=== PATIENT | female | born 1970 | race Caucasian/White ===

== ENCOUNTER 2020-03-22 22:55 | Emergency (ER) | payer OTHER ==
[~2020-03-22] VITALS: Ht 160 cm; Wt 79.5 kg
--- NOTE | 2020-03-22 23:11 | PHYS DOC ---
General Adult EDM: Chief Complaint: HAND PROBLEM HPI: HPI: Patient is a 49-year-old female coming in for bilateral forearm pain and right hand pain. Just prior to arrival she was sitting in a stool fell backwards and caught herself on the floor with her hands. No other injuries. She is right- handed. States her hand feels like it is "asleep" Review of Systems: Review of Systems: Constitutional: Denies fever or chills Eyes: Denies change in visual acuity HENT: Denies nasal congestion or sore throat Respiratory: Denies cough or shortness of breath Cardiovascular: Denies chest pain or edema GI: Denies abdominal pain, nausea, vomiting, bloody stools or diarrhea : Denies dysuria Musculoskeletal: Bilateral forearm pain and right hand pain Integument: Denies rash Neurologic: Denies headache, focal weakness or sensory changes Endocrine: Denies polyuria or polydipsia Lymphatic: Denies swollen glands Psychiatric: Denies depression or anxiety Physical Exam: PE: Constitutional: Well developed, well nourished, no acute distress, non-toxic appearance. [] HENT: Normocephalic, atraumatic, bilateral external ears normal, oropharynx moist, no oral exudates, nose normal. [] Eyes: PERRLA, EOMI, conjunctiva normal, no discharge. [] Neck: Normal range of motion, no tenderness, supple, no stridor. [] Cardiovascular:Heart rate regular rhythm, no murmur [] Lungs & Thorax: Bilateral breath sounds clear to auscultation [] Abdomen: Bowel sounds normal, soft, no tenderness, no masses, no pulsatile masses. [] Skin: Warm, dry, no erythema, no rash. [] Back: No tenderness, no CVA tenderness. [] Extremities: No tenderness, no cyanosis, no clubbing, ROM intact, no edema. [] Bilateral forearm tenderness, left forearm pain worse with pronation, no deformities, right arm is distal protrusion, slight swelling of hand, neurovascular distal to injury. Neurologic: Alert and oriented X 3, normal motor function, normal sensory function, no focal deficits noted. [] Psychologic: Affect normal, judgement normal, mood normal. [] EKG: EKG: [] Radiology/Procedures: Radiology/Procedures: [] Heart Score: Risk Factors: Risk Factors: DM, Current or recent (<one month) smoker, HTN, HLP, family history of CAD, obesity. Risk Scores: Score 0 - 3: 2.5% MACE over next 6 weeks - Discharge Home Score 4 - 6: 20.3% MACE over next 6 weeks - Admit for Clinical Observation Score 7 - 10: 72.7% MACE over next 6 weeks - Early Invasive Strategies Course & Med Decision Making: Course & Med Decision Making EP interpretation of films, and then left for remarkable, impacted nondisplaced distal radius fracture on right [] Dragon Disclaimer: Billie Disclaimer: This electronic medical record was generated, in whole or in part, using a voice recognition dictation system. Departure Departure: Impression: Primary Impression: Fracture of right distal radius Disposition: 01 DC HOME SELF CARE/HOMELESS Condition: STABLE Referrals: PCP,UNKNOWN (PCP) [facility] Patient Instructions: Wrist Fracture ELVER CASTLE MD Mar 22, 2020 23:11
[2020-03-22 23:12] VITALS: BP 150/91
[2020-03-22] MEDS ORDERED: HYDROcodone/APAP 5/325MG 1 TAB TABLET PO ONE (23:15)
[2020-03-22] MEDS ORDERED: ACETAMINOPHEN 500 MG TABLET PO ONE ×2 (23:29→23:30)
--- NOTE | 2020-03-23 00:31 | RAD ---
HAND RIGHT 3V, FOREARM BILAT DATE: 03/22/2020 11:08 PM INDICATION: Reason: Injury from fall, right wrist and bilateral forearm pain / Spl. Instructions: / History: COMPARISON: None. FINDINGS: Right hand and forearm: Acute transverse fracture of the distal radial metaphysis with impaction. No definite intra-articular extension. Question of a slight ulnar styloid fracture. Left forearm: No acute fracture.. IMPRESSION: Acute impacted right distal radius fracture. Question nondisplaced right ulnar styloid fracture. Electronically signed by: Edgard Pinedo MD (03/23/2020 12:28 AM) RONNIE
== END 2020-03-23 00:39 | disposition home or self-care (01) ==
LOC: ER 22:55
DX: S52.501A Unspecified fracture of the lower end of right radius, initial encounter for closed fracture (principal); M79.632 Pain in left forearm; M79.631 Pain in right forearm; W18.39XA Other fall on same level, initial encounter; Y93.89 Activity, other specified; Y92.89 Other specified places as the place of occurrence of the external cause; Y99.8 Other external cause status
CPT/HCPCS: 29125; 73090; 73130; 99284

== ENCOUNTER 2020-03-29 06:32 | Emergency (ER) | payer OTHER ==
[~2020-03-29] VITALS: Ht 160 cm; Wt 79.3 kg
--- NOTE | 2020-03-29 06:57 | PHYS DOC ---
Past History Past Medical History: No Pertinent History Past Surgical History: Hysterectomy, Tubal ligation, Other Additional Past Surgical Histo: RENAL CYST Smoking: Non-smoker Alcohol Use: None Drug Use: None General Adult EDM: Chief Complaint: "Cast too tight" HPI: HPI: 49 yo female came to ed with cc of tight cast on her R hand. She reported fracture to her wrist 03/22/2020, went to ED, and received temporary splint. She waited for referral and finally saw by clinic yesterday 03/28/2020. Patient seen by Dr. Moore (orthopedics) who placed patient in cast at 11 AM. Same day 03/28/2020 9PM, she experienced pressure point around her R ulna, R fingers numbness. At ED, she insisted cast to be removed due to discomfort and numbness. Otherwise, she would "remove this cast herself". Review of Systems: Review of Systems: Constitutional: Denies fever or chills Respiratory: Denies cough or shortness of breath Cardiovascular: Denies chest pain or palpitations Musculoskeletal: Denies back pain or joint pain; reports pain and discomfort to right hand Integument: Denies rash or skin lesions Neurologic: Denies headache or focal weakness; reports numbness to right hand Complete systems were reviewed and found to be within normal limits, except as documented in this note. Family History: Family History: non-contributory Allergies: Allergies: Allergies Coded Allergies Type Severity Reaction Last Updated Verified Tetanus Vaccines and Toxoid Allergy Severe Anaphylaxis 03/22/20 Yes ibuprofen Allergy Mild Hives 03/22/20 Yes Penicillins Allergy Unknown 03/22/20 Yes erythromycin base Allergy Unknown 03/22/20 Yes indomethacin Allergy Unknown 03/22/20 Yes Physical Exam: PE: Constitutional: Well developed, well nourished, no acute distress, non-toxic HENT: Normocephalic, atraumatic Eyes: Conjunctiva normal, no discharge Neck: Normal range of motion, no tenderness, supple Lungs & Thorax: No respiratory distress, equal chest rise and fall Skin: Warm, dry, no erythema, no rash Back: No tenderness, no CVA tenderness Extremities: UE: bl 2+ cap refill, bl intact sensation (C6, C7, C8) L UE- full ROM at shoulder, elbow, and hand R UE - shoulder - full ROM, elbow - not tested, limited by cast, hand - limited motion by cast, able to squeeze weakly, reports decreased sensation to right fingers Neurologic: normal motor function, normal sensory function, no focal deficits noted Course & Med Decision Making: Course & Med Decision Making 49 yo female with cc of tight R hand came to ED want her cast removed due to discomfort and numbness. Patient has hx of recent wrist fracture with temporary splint and was placed on cast. After HPI and PE, we made 2 longitudinal cuts along the sides of her cast to loosen, not remove, her cast as requested. Refer patient back to clinic for cast re-evaluation. Patient stable for discharge with outpatient follow-up with PCP/orthopedics. Discussed findings and plan with patient, who acknowledges understanding and agreement. Dragon Disclaimer: Billie Disclaimer: This electronic medical record was generated, in whole or in part, using a voice recognition dictation system. Additional Procedures Progress Partial cast removal: Verbal consent obtained. Time out performed. Hand hygiene utilized. Cast cutter utilized to stem cast on both sides. Cast pharmacy messenger utilized to loosen cast. UDAY bandage applied. Sensation improved to right fingers and CR < 2 sec. Patient tolerated procedure well and without difficulty. Departure Departure: Impression: Primary Impression: Cast discomfort Disposition: 01 DC HOME SELF CARE/HOMELESS Condition: STABLE Referrals: PCP,UNKNOWN (PCP) HERMILO MOORE MD Patient Instructions: Cast or Splint Care, Lecd-aq-Madf RONDA RETANA DO Mar 29, 2020 06:57
[2020-03-29 08:05] VITALS: BP 151/92
== END 2020-03-29 08:08 | disposition home or self-care (01) ==
LOC: ER 06:32
DX: Z46.89 Encounter for fitting and adjustment of other specified devices (principal); Z88.0 Allergy status to penicillin; Z88.1 Allergy status to other antibiotic agents; Z88.7 Allergy status to serum and vaccine; Z88.8 Allergy status to other drugs, medicaments and biological substances
CPT/HCPCS: 99284

== ENCOUNTER → 2020-04-18 | Outpatient (CLI) | payer OTHER ==
[2020-03-29 08:05] VITALS: BP 151/92
--- NOTE | 2020-04-18 17:03 | RAD ---
EXAM: 3 views of the left elbow DATE: 04/18/2020 1:40 PM INDICATION: Reason: PAIN / Spl. Instructions: / History: COMPARISON: No Prior FINDINGS: No elbow joint effusion. No acute fracture or dislocation. Mild cortical offset at the radial head/ne ck junction likely from prominent osteophyte or old fracture. No significant soft tissue swelling. IMPRESSION: 1. No evidence of acute fracture or dislocation. Electronically signed by: Marco Antonio Gaviria MD (04/18/2020 5:01 PM) MELITON
--- NOTE | 2020-04-18 17:47 | RAD ---
Right wrist 3 views INDICATION: Right wrist pain COMPARISON: Right forearm x-rays 03/22/2020 FINDINGS: Interval casting of the right forearm with sclerosis at the right radial physis, compatible with part ial healing of the previously evident distal radial fracture. Alignment appears anatomic on the avail able views. Is mild soft tissue swelling. No new fracture or aggressive appearing bony lesions. IMPRESSION: Evidence of partial healing of distal radial metaphyseal fracture in good alignment with a cast in pl k[place] and some residual soft tissue swelling. Electronically signed by: Xiomy Marcelino MD (04/18/2020 5:45 PM) [id number]
== END ==
LOC: DXRAD 13:34
PROVIDERS: ATTEND Physician Assistant
DX: S52.301D Unspecified fracture of shaft of right radius, subsequent encounter for closed fracture with routine healing (principal); M79.89 Other specified soft tissue disorders; X58.XXXD Exposure to other specified factors, subsequent encounter
CPT/HCPCS: 73080; 73110

== ENCOUNTER → 2020-05-16 | Outpatient (CLI) | payer OTHER ==
--- NOTE | 2020-05-16 17:40 | RAD ---
PROCEDURE: XR FOREARM_RIGHT 2 VIEWS STUDY DATE: 05/16/2020 CLINICAL INDICATION / HISTORY: Reason: fracture in March. Instructions: / History: . TECHNIQUE: Right forearm 2 views. AP and lateral views. COMPARISON: Right wrist x-rays of 04/18 2020 right forearm x-rays of 03/22/2020 FINDINGS: There has been interval sclerosis of the fracture through the distal radial metaphysis with minimal r esidual osseous deformity. No new fracture. No aggressive osseous lesions. No joint space narrowing, subchondral sclerosis and osteophytic spurring. The soft tissues are unremarkable. IMPRESSION: Interval healing of the distal right radial metaphyseal fracture with minimal residual de formity. PROCEDURE: XR ELBOW COMPLETE_LEFT 3+VIEWS STUDY DATE: 05/16/2020 CLINICAL INDICATION / HISTORY: Reason: fracture in March. Instructions: / History: . TECHNIQUE: Bilateral Elbows 3 views each COMPARISON: Left forearm of 03/22/2020 FINDINGS: 3 views of the right elbow show no fracture or dislocation. 3 views of the left elbow show an impacted fracture of the radial neck with still visible fracture li ne. This is new or more apparent in the interval. IMPRESSION: 1. Negative right elbow. 2. Impaction fracture left radial neck. Electronically signed by: Xiomy Marcelino MD (05/16/2020 5:37 PM) [id number]
== END ==
LOC: DXRAD 16:16
PROVIDERS: ATTEND Physician Assistant
DX: S52.132A Displaced fracture of neck of left radius, initial encounter for closed fracture (principal); S52.531A Colles' fracture of right radius, initial encounter for closed fracture; X58.XXXA Exposure to other specified factors, initial encounter; Y93.89 Activity, other specified; Y92.89 Other specified places as the place of occurrence of the external cause; Y99.8 Other external cause status
CPT/HCPCS: 73080; 73090

== ENCOUNTER → 2020-06-13 | Outpatient (CLI) | payer OTHER ==
--- NOTE | 2020-06-14 08:31 | RAD ---
PROCEDURE: XR FOREARM_RIGHT 2 VIEWS, XR ELBOW_LEFT STUDY DATE: 06/14/2020 CLINICAL INDICATION / HISTORY: Follow-up left elbow fracture. TECHNIQUE: Left Elbow 2 views COMPARISON: 05/16/2020, 04/18/2020 left elbow x-rays. FINDINGS: Two views of the left elbow demonstrate good interval healing of the previously reported le ft radial neck fracture with no significant residual deformity. No evidence of fracture, subluxation, or dislocation is appreciated on this exam. Soft tissues unremarkable. IMPRESSION: Evidence of healing of the left radial neck fracture with no significant residual deformi ty appreciated. PROCEDURE: XR FOREARM_RIGHT 2 VIEWS, XR ELBOW_LEFT STUDY DATE: 06/14/2020 CLINICAL INDICATION / HISTORY: Right radial metaphyseal fracture follow-up. TECHNIQUE: Right forearm 2 views. AP and lateral views. COMPARISON: 05/16/2020, 03/22/2020 right forearm x-rays. FINDINGS: Subtle lucency along the articular surface of the right radial epiphysis on the AP view is noted with further evidence of healing of the distal metaphyseal fracture. No malalignment. IMPRESSION: Lucency along the radial epiphysis could represent a prominent vascular groove versus res idual from previous fracture now since nearly completely healed. The radius is otherwise unremarkable with no malalignment or significant deformity. Electronically signed by: Xiomy Marcelino MD (06/14/2020 8:28 AM) [id number]
== END ==
LOC: RAD 15:09
PROVIDERS: ATTEND Physician Assistant
DX: S52.135D Nondisplaced fracture of neck of left radius, subsequent encounter for closed fracture with routine healing (principal); S52.531D Colles' fracture of right radius, subsequent encounter for closed fracture with routine healing; S52.125D Nondisplaced fracture of head of left radius, subsequent encounter for closed fracture with routine healing; X58.XXXD Exposure to other specified factors, subsequent encounter
CPT/HCPCS: 73070; 73090

== ENCOUNTER → 2020-07-11 | Outpatient (CLI) | payer OTHER ==
--- NOTE | 2020-07-11 15:19 | RAD ---
XR RT WRIST 3VIEWS History: Reason: RIGHT WRIST PAIN / Spl. Instructions: / History: Comparison: 04/18/2020 Technique: 3 views of the right wrist. Findings: There is no evidence for fracture. Alignment is normal. No destructive osseous lesions are seen. Joint spaces are preserved. Soft tissues are normal. Impression: 1. No acute osseous abnormality of the right wrist. Recommend repeat radiographs in 7-10 days if the re is pain at the scaphoid. Electronically signed by: Rey Gonzalez MD (07/11/2020 3:16 PM) [facility]
== END ==
LOC: RAD 14:44
PROVIDERS: ATTEND Physician Assistant
DX: S52.531D Colles' fracture of right radius, subsequent encounter for closed fracture with routine healing (principal); X58.XXXD Exposure to other specified factors, subsequent encounter
CPT/HCPCS: 73110

== ENCOUNTER → 2020-12-14 | Outpatient (CLI) | payer OTHER ==
--- NOTE | 2020-12-14 17:12 | RAD ---
3 views right ankle and two-view right tibia-fibula HISTORY: Pain, rolled ankle getting out of car Two-view right tibia-fibula AP lateral views The visualized osseous structures appear normal. IMPRESSION: No acute findings. Three-view right ankle: AP lateral oblique views The visualized osseous structures appear normal. IMPRESSION: No acute findings. Electronically signed by: Carlos Aaron III, MD (12/14/2020 5:09 PM) [id number]
== END ==
LOC: RAD 16:53
PROVIDERS: ATTEND Physician Assistant
DX: S93.491A Sprain of other ligament of right ankle, initial encounter (principal); S80.12XA Contusion of left lower leg, initial encounter; X58.XXXA Exposure to other specified factors, initial encounter; Y93.89 Activity, other specified; Y92.89 Other specified places as the place of occurrence of the external cause; Y99.8 Other external cause status
CPT/HCPCS: 73590; 73610

== ENCOUNTER 2021-06-01 11:50 | Emergency (ER) | payer OTHER ==
[~2021-06-01] VITALS: Ht 160 cm; Wt 90.7 kg
[2021-06-01 12:08] VITALS: BP 155/92
[2021-06-01] MEDS ORDERED: ACETAMINOPHEN 500 MG TABLET PO ONE (13:00)
--- NOTE | 2021-06-01 13:18 | RAD ---
Examination: LEFT LOWER EXTREMITY - UNILATERAL VENOUS DOPPLER Technique: Ultrasound evaluation of the left lower extremity was performed from the groin to the uppe r calf with teixeira scale, spectral and color doppler evaluation. Indication: Leg swelling Comparison: None Findings: There is normal venous flow and compressibility of left common femoral vein, femoral vein, popliteal vein, and visualized proximal calf veins. Impression: No evidence for deep vein thrombosis of left lower extremity from the level of the calf v eins to the groins. Electronically signed by: Marco Antonio Gaviria MD (06/01/2021 1:15 PM) [id number]
[2021-06-01] MEDS ORDERED: CYCL5TAB PO (13:38)
[2021-06-01] MEDS ORDERED: lidoderm 5% patch TD (13:38)
[2021-06-01] MEDS ORDERED: ACET500T68 PO (13:38)
--- NOTE | 2021-06-01 13:38 | PHYS DOC ---
Past History Past Medical History: No Pertinent History Past Surgical History: Hysterectomy, Tubal ligation, Other Additional Past Surgical Histo: RENAL CYST Smoking: Non-smoker Alcohol Use: Rarely Drug Use: None Adult General Chief Complaint Chief Complaint: LOWER EXT PAIN HPI HPI The patient is a 50-year-old female with a history of prior provoked DVT (was taking estrogen) about a year ago, on a blood thinner for about 3 months but no longer taking. She is otherwise healthy. She presents for evaluation of focal discomfort to her lateral left mid thigh, directly reproducible to palpation, with onset 5 to 6 days ago without injury that she can recollect. States that discomfort feels similar to the pain that she had with her prior DVT. Severity of discomfort 4 out of 10 at present. Patient has been taking Tylenol without complete relief of symptoms. She denies associated fevers, nausea or vomiting, upper respiratory congestion/rhinorrhea, cough, sore throat, shortness of breath or chest pain of any kind, abdominal pain of any kind, flank pain, midline or paraspinal back pain of any kind, dysuria, hematuria, polyuria or oliguria, changes in bowel habits, loss of bowel or bladder control, saddle anesthesia, new lower extremity weakness, numbness or tingling, new urinary retention, use of intravenous illegal drugs. Patient is alert and pleasantly and appropriately interactive and in no acute distress with appropriate vital signs upon initial evaluation here in the emergency department. Review of Systems Review of Systems A 12 point review of systems was completed and was negative except where noted in HPI above. Current Medications Current Medications Current Medications Medications (Trade) Dose Ordered Sig/Teagan Start Time Stop Time Status Last Admin Dose Admin Acetaminophen (Tylenol) 1,000 mg 1X ONCE 06/01/21 13:00 06/01/21 13:01 DC 06/01/21 13:00 1,000 MG Allergies Allergies Allergies Coded Allergies Type Severity Reaction Last Updated Verified Tetanus Vaccines and Toxoid Allergy Severe Anaphylaxis 03/29/20 Yes ibuprofen Allergy Mild Hives 03/29/20 Yes Penicillins Allergy Unknown 03/29/20 Yes erythromycin base Allergy Unknown 03/29/20 Yes indomethacin Allergy Unknown 03/29/20 Yes Physical Exam Physical Exam Middle-aged female appearing nontoxic and in no acute distress. Head is normocephalic and atraumatic. Neck is supple and nontender. Oropharynx is moist. Lungs are clear to auscultation at all stations. There is normal S1 and S2 without rubs or gallops and capillary refill is appropriate, less than 2 seconds globally. Abdomen is soft, nontender and nondistended. Examination of the back reveals no erythema, warmth, swelling, tenderness to palpation, step- offs or deformities. Skin is warm and dry without cyanosis, clubbing or edema. Psychiatrically, the patient demonstrates appropriate mood and affect and is alert. Evaluation of the extremities reveals BUEs and BLEs neurovascularly intact distally with strength 5 out of 5, sensation intact light touch in all nerve distributions, radial, DP and PT pulses 2+ and equal bilaterally, capillary refill less than 2 seconds, hands and feet warm and well-perfused. No dependent peripheral edema distally. No calf tenderness or swelling bilaterally. Homans test is negative bilaterally. There is mild tenderness to palpation over a focal area to the left lateral mid thigh without associated erythema, warmth, swelling or ecchymosis. No discomfort with ranging at any joints of the bilateral upper or lower extremities including the LLE. Current Patient Data Vital Signs Vital Signs Date Time Temp Pulse Resp B/P (MAP) Pulse Ox O2 Delivery O2 Flow Rate FiO2 06/01/21 12:08 98.2 87 16 155/92 (113) 98 Room Air EKG EKG [] Radiology/Procedures Radiology/Procedures Examination: LEFT LOWER EXTREMITY - UNILATERAL VENOUS DOPPLER Technique: Ultrasound evaluation of the left lower extremity was performed from the groin to the upper calf with teixeira scale, spectral and color doppler evaluation. Indication: Leg swelling Comparison: None Findings: There is normal venous flow and compressibility of left common femoral vein, femoral vein, popliteal vein, and visualized proximal calf veins. Impression: No evidence for deep vein thrombosis of left lower extremity from the level of the calf veins to the groins. Electronically signed by: Marco Antonio Villalobos MD (06/01/2021 1:15 PM) [id number] DICTATED AND SIGNED BY: MARCO ANTONIO VILLALOBOS MD DATE: 06/01/21 1315 CC: JORGE A BAKER MD; GRICELDA NAILS MD ~MTH0 0 [] Heart Score C/O Chest Pain: No Risk Factors: Risk Factors: DM, Current or recent (<one month) smoker, HTN, HLP, family history of CAD, obesity. Risk Scores: Risk Factors: DM, Current or recent (<one month) smoker, HTN, HLP, family history of CAD, obesity. Course & Med Decision Making Course & Med Decision Making Vital signs and clinical examination are reassuring. Venous Doppler study negative for DVT to the affected leg. No evidence of an emergency condition is identified. Seems reasonable to treat symptomatically and supportively with medications as below and will have the patient follow-up very closely with her primary care doctor in the next couple of days. She understands that if she feels worse instead of better or develops other new symptoms of concern that she will need to return to the emergency department immediately for reevaluation. All questions are answered. Dragon Disclaimer Dragon Disclaimer This electronic medical record was generated, in whole or in part, using a voice recognition dictation system. Departure Departure: Impression: Primary Impression: Left leg pain Disposition: HOME / SELF CARE / HOMELESS Condition: STABLE Referrals: JORGE A BAKER MD (PCP) Patient Instructions: Musculoskeletal Pain Additional Instructions: Follow-up very closely with your primary care doctor in the office in the next 2 to 4 days for a reevaluation of your symptoms and a discussion of next best steps in care. Rest, ice and elevate. Take a 500 mg extra strength Tylenol pill every 6 hours as needed for discomfort. Apply a Lidoderm patch daily to the area that hurts, leave it on for 12 hours and then remove it. The next day you may apply a new patch. For pain not well controlled with other medicines you may take a cyclobenzaprine pill every 6 hours as needed. Be careful because cyclobenzaprine as a muscle relaxant and can make you sleepy so do not drive or work or operate machinery while taking it. Return to the emergency department right away for worsening symptoms of any kind or with any other new symptoms of concern. Scripts Cyclobenzaprine Hcl (CYCLOBENZAPRINE HCL) 5 Mg Tablet 1 TAB PO QID for pain/spasm, #14 TAB Prov: GRICELDA NAILS MD 06/01/21 [lidoderm 5% patch] No Conflict Check 1 PATCH TD DAILY for pain, #13 Prov: GRICELDA NAILS MD 06/01/21 Acetaminophen (ACETAMINOPHEN) 500 Mg Tablet 1 TAB PO PRN Q6HRS PRN for pain or fever, #50 TAB 0 Refills Prov: GRICELDA NAILS MD 06/01/21 GRICELDA NAILS MD Jun 01, 2021 13:38
== END 2021-06-01 13:43 | disposition home or self-care (01) ==
LOC: ER 11:50
DX: M79.605 Pain in left leg (principal); Z88.7 Allergy status to serum and vaccine; Z88.0 Allergy status to penicillin; Z88.8 Allergy status to other drugs, medicaments and biological substances; Z88.1 Allergy status to other antibiotic agents
CPT/HCPCS: 93971; 99284